=== PATIENT | female | born 1955 ===

== ENCOUNTER 2017-05-23 12:05 | Observation (INO) | payer BC ==
[2017-05-23 12:06] VITALS: BMI 45.2
[2017-05-23] MEDS ORDERED: Albuterol 0.083% Inhal Sol (2.5 mg/3 mL) UD INH ONE (13:08)
--- NOTE | 2017-05-23 13:45 | ED PDOC ---
HPI: SOB/CHF/COPD Time Seen by Provider: 05/23/17 12:20 Chief Complaint (Nursing): Cough, Cold, Congestion Chief Complaint (Provider): Shortness of breath History Per: Patient History/Exam Limitations: no limitations Onset/Duration Of Symptoms: Days (x5) Current Symptoms Are (Timing): Still Present Current Respiratory Medications: See Home Med List, Prednisone Associated Symptoms: denies: Fever, Chills, Other (vomiting, diarrhea, dry cough ) Recently: Treated By A Physician Additional Complaint(s): Pooja Berry is a 62 year old female, with a past medical history of asthma, bronchitis, and PNA, who presents to the emergency department complaining of shortness of breath onset for x5 days. Patient states she went to [facility] in [place] for cough, she was given levaquin and prednisone as treatment for pneumonia, she was told if symptoms worsen to come to the ER. She felt slightly better but still has shortness of breath. She was checked for the Flu on Tuesday which came back negative. She denies dry cough, vomiting, diarrhea, fever or chills. No further medical complaints. PMD: None provided. Past Medical History Reviewed: Historical Data, Nursing Documentation, Vital Signs Vital Signs: Last Vital Signs Temp 97.8 F 05/24/17 08:08 Pulse 81 05/24/17 09:00 Resp 20 05/24/17 08:08 BP 120/70 05/24/17 08:08 Pulse Ox 99 05/24/17 08:08 - Medical History PMH: Anxiety, Arthritis, Asthma, Bronchitis, Cardia Arrhythmia, Depression, Fractures (Fx ribs after falling off stairs), Hiatal Hernia, Pneumonia Denies: Chronic Kidney Disease - Surgical History Surgical History: Cholecystectomy Denies: Pacemaker - Family History Family History: States: Unknown Family Hx - Social History Current smoker - smoking cessation education provided: No Alcohol: None Drugs: Denies - Immunization History Hx Tetanus Toxoid Vaccination: Yes Hx Influenza Vaccination: No Hx Pneumococcal Vaccination: Yes - Home Medications Home Medications: Ambulatory Orders Medication Instructions Recorded Albuterol HFA [Ventolin HFA 90 1 inh INH PRN PRN 05/23/17 mcg/actuation (8 g)] Levofloxacin [Levaquin] 500 mg PO DAILY 05/23/17 Prednisone [Deltasone] 60 mg PO DAILY 05/23/17 Albuterol 0.083% [Albuterol 0.083% 2.5 mg INH RQ6 PRN #90 neb 05/24/17 Inhal Maria C (2.5 mg/3 ml) UD] Brompheniramine/Pseudoephed/Dm 10 ml PO Q6 #1 bottle 05/24/17 [Bromfed Dm Cough Syrup] - Allergies Allergies/Adverse Reactions: Allergies Allergy/AdvReac Type Severity Reaction Status Date / Time hydrocodone Allergy Severe ANAPHYLAXIS Verified 05/11/17 06:02 Iodine and Iodide Containing Allergy Severe ANAPHYLAXIS Verified 05/11/17 06:02 Produc oxycodone Allergy Severe ANAPHYLAXIS Verified 05/11/17 06:02 Penicillins Allergy Severe ANAPHYLAXIS Verified 05/11/17 06:02 shellfish derived Allergy Severe ANAPHYLAXIS Verified 05/11/17 06:02 iodine Allergy ANAPHYLAXIS Verified 05/11/17 06:02 SEAFOOD Allergy Severe ANAPHYLAXIS Uncoded 05/11/17 06:02 seafood Allergy Severe ANAPHYLAXIS Uncoded 05/11/17 06:02 Review of Systems ROS Statement: Except As Marked, All Systems Reviewed And Found Negative Constitutional: Negative for: Fever, Chills Respiratory: Positive for: Shortness of Breath. Negative for: Cough (dry) Gastrointestinal: Negative for: Vomiting, Diarrhea Physical Exam - Reviewed Nursing Documentation Reviewed: Yes Vital Signs Reviewed: Yes - Physical Exam Appears: Positive for: Well (obese), Non-toxic, No Acute Distress Head Exam: Positive for: ATRAUMATIC, NORMAL INSPECTION, NORMOCEPHALIC Skin: Positive for: Normal Color, Warm, Dry Eye Exam: Positive for: Normal appearance ENT: Positive for: Normal ENT Inspection Neck: Positive for: Normal, Painless ROM, Supple Cardiovascular/Chest: Positive for: Regular Rate, Rhythm. Negative for: Murmur Respiratory: Negative for: Normal Breath Sounds (diminished breath sounds bilaterally ) Gastrointestinal/Abdominal: Positive for: Normal Exam, Soft. Negative for: Tenderness Back: Positive for: Normal Inspection. Negative for: L CVA Tenderness, R CVA Tenderness Extremity: Positive for: Normal ROM. Negative for: Deformity Neurologic/Psych: Positive for: Alert, Oriented - Laboratory Results Result Diagrams: 05/23/17 17:59 05/23/17 17:59 - ECG O2 Sat by Pulse Oximetry: 96 (RA) Pulse Ox Interpretation: Normal Medical Decision Making Medical Decision Making: Initial Impression: short of breath rule out PNA, asthma exacerbation Initial Plan: --Chest two views (PA/LAT) [RAD] --Albuterol 0.083% Inhal Maria C 2.5 mg INH --Peak flow pre/post Tx --Influenza A B --reevaluation 13:40 Chest X-Ray FINDINGS: LUNGS: No active pulmonary disease. PLEURA: No significant pleural effusion identified. No pneumothorax apparent. CARDIOVASCULAR: No radiographic findings to suggest acute or significant cardiovascular disease. OSSEOUS STRUCTURES: No significant abnormalities. VISUALIZED UPPER ABDOMEN: Normal. OTHER FINDINGS: None. IMPRESSION: No active disease. No significant interval change compared to the prior examination(s). 14:30 --Will order CT to rule out PE 16:20 --D Dimer elevated pt unable to get CT chest due to allergy to iodine. 16:30 --Patient was accepted by Dr. Jesus. will be admitted to hospital. Scribe Attestation: Documented by Kyle Ferraro, acting as a scribe for Ne Jensen MD Provider Scribe Attestation: All medical record entries made by the Scribe were at my direction and personally dictated by me. I have reviewed the chart and agree that the record accurately reflects my personal performance of the history, physical exam, medical decision making, and the department course for this patient. I have also personally directed, reviewed, and agree with the discharge instructions and disposition. Disposition - Clinical Impression Clinical Impression: Acute back pain, Chest pain - Patient ED Disposition Is Patient to be Admitted: Yes - Disposition Disposition Time: 14:15 Condition: STABLE
--- NOTE | 2017-05-23 14:16 | RAD ---
HISTORY: cough rule out pneumonia COMPARISON: 07/22/2009. TECHNIQUE: Chest PA and lateral FINDINGS: LUNGS: No active pulmonary disease. PLEURA: No significant pleural effusion identified. No pneumothorax apparent. CARDIOVASCULAR: No radiographic findings to suggest acute or significant cardiovascular disease. OSSEOUS STRUCTURES: No significant abnormalities. VISUALIZED UPPER ABDOMEN: Normal. OTHER FINDINGS: None. IMPRESSION: No active disease. No significant interval change compared to the prior examination(s).
[2017-05-23 18:15] LABS: BASO # 0.1 K/uL (0.0-0.2); BASO % 0.5 % (0.0-2.0); EOS # 0.1 K/uL (0.0-0.7); EOS % 0.7 % (0.0-4.0); HEMOGLOBIN 14.6 g/dL (12.0-16.0); LYMPH # 3.4 K/uL (1.0-4.3); LYMPH % 29.8 % (20.0-40.0); MEAN CELL VOLUME 81.6 fl (81.0-99.0); MEAN CORPUSCULAR HEMOGLOBIN 26.6 pg (27.0-31.0); MEAN CORPUSCULAR HGB CONC 32.5 g/dL (33.0-37.0); MEAN PLATELET VOLUME 8.5 fl (7.2-11.7); MONO # 0.7 K/uL (0.0-0.8); MONO % 5.8 % (0.0-10.0); NEUT # 7.2 K/uL (1.8-7.0); NEUT % 63.2 % (50.0-75.0); RBC 5.48 Mil/uL (3.80-5.20); WHITE BLOOD COUNT 11.5 K/uL (4.8-10.8)
[2017-05-23 18:26] LABS: ALB/GLOB RATIO 1.2 (1.0-2.1); ALT/SGPT 34 U/L (9-52); AST/SGOT 23 U/L (14-36); BLOOD UREA NITROGEN 15 mg/dl (7-17); CALCIUM 9.1 mg/dL (8.4-10.2); GFR AFRICAN-AMERICAN > 60; GFR NON-AFRICAN AMERICAN > 60
[2017-05-23] MEDS ORDERED: Enoxaparin 100 mg Syringe SC STA (22:16)
[2017-05-24] MEDS: Albuterol 0.083% Inhal Sol (2.5 mg/3 mL) UD INH PRN ×2 (00:13→08:32)
[2017-05-24] MEDS ORDERED: Enoxaparin 60 mg Syringe SC STA (00:21)
[2017-05-24] MEDS ORDERED: Potassium Chloride 20 mEq ER Tab PO ONE (11:21)
--- NOTE | 2017-05-24 12:59 | NM ---
COMPARISON: May 23, 2017. TECHNIQUE: 44.0 mCi technetium 99-m DTPA aerosol. 5.7 mCI technetium 99-m MAA administered intravenously. FINDINGS: VENTILATION COMPONENT: Mildly heterogeneous. Radionuclide identified in the tracheobronchial tree in the esophagus in incidental finding PERFUSION COMPONENT: Heterogeneous distribution of radionuclide. No geographic, segmental, lobar abnormalities apparent on the present examination. IMPRESSION: Low probability ventilation perfusion scan for pulmonary embolism.
[2017-05-24 15:49] VITALS: BP 122/78; PULSE 84; RESP 19; TEMP 97.3; O2SAT 99
--- NOTE | 2017-05-24 21:53 | CARD ---
APPROVED REPORT EKG Measurement Heart [id number] <Conclusion> Normal sinus rhythm Normal ECG
--- NOTE | 2017-05-25 04:05 | HP ---
HISTORY OF PRESENT ILLNESS: This is a 62-year-old female with history of bronchial asthma, who was admitted to the emergency room for respiratory symptoms, mainly upper, associated with upper back pleuritic-like pain. THE PATIENT HAS ALLERGY TO IODINE and CT angiogram was not done. The patient had elevated D-dimer and there was a concern to rule out PE. The patient was admitted to the hospital for further management. REVIEW OF SYSTEMS: Other review of system is negative. ALLERGIES: MULTIPLE ALLERGIES TO, HYDROCODONE, IODINE, OXYCODONE, PENICILLIN. SOCIAL HISTORY: No history of smoking, EtOH, or substance abuse. FAMILY HISTORY: Noncontributory. HOME MEDICATIONS: Include albuterol. The patient was on steroid as well as Levaquin. PAST MEDICAL HISTORY: Bronchial asthma. PHYSICAL EXAMINATION: GENERAL: The patient was not in any cardiopulmonary distress. VITAL SIGNS: Blood pressure 120/70, temperature 97.8, respiratory rate 20, and pulse 66. HEENT: Pupils equal, reactive to light. Normal-appearing mucosa of the conjunctivae, oropharynx, and nasal membrane mucosa. NECK: Supple. No JVD. No carotid bruit. No lymph node. No thyromegaly. CHEST/LUNGS: Bilateral symmetrical expansion. Good air exchange. No rales, no rhonchi. CARDIOVASCULAR: PMI not localized. S1, S2. No additional sounds. ABDOMEN: Normoactive bowel sounds. No tenderness. No organomegaly. No masses. EXTREMITIES: No cyanosis, no clubbing, no edema. CAUSTICISER: Alert, awake, oriented x3. No neurological deficit could be appreciated. ASSESSMENT: 1. Upper respiratory tract infection. 2. History of bronchial asthma. 3. Pleuritic-like chest pain. PLAN: We will do a V/Q scan, continue the current medications, and review the chest x-ray which showed no active disease. Shabnam Jesus MD
--- NOTE | 2017-05-25 05:54 | DS ---
REASON FOR ADMISSION: This is a 62-year-old female with history of bronchial asthma, was admitted for pleuritic chest pain. COURSE OF HOSPITALIZATION: Patient was admitted to telemetry floor and she was started on DVT prophylaxis and V/Q scan was ordered. V/Q scan results was of low probability for pulmonary embolism and patient was discharged home to continue her bronchodilators as well as cough suppressant. FINAL DIAGNOSES: Upper respiratory tract infection, musculoskeletal upper back pain, history of bronchial asthma. [facility] MD [place]
== END 2017-05-24 16:30 | disposition home or self-care (01) ==
LOC: H.ER 12:05 → H.ERHOLD 16:29 → H.TEL 21:04
PROVIDERS: ADMIT Internal Medicine; ATTEND Internal Medicine
DX: J06.9 Acute upper respiratory infection, unspecified (principal); J45.909 Unspecified asthma, uncomplicated; M54.6 Pain in thoracic spine; Z88.5 Allergy status to narcotic agent; Z88.0 Allergy status to penicillin; Z91.041 Radiographic dye allergy status; F41.9 Anxiety disorder, unspecified; F32.9 Major depressive disorder, single episode, unspecified; M19.90 Unspecified osteoarthritis, unspecified site
CPT/HCPCS: 71046; 78582; 80053; 85025; 85378; 87804; 93005; 94150; 94640; 96372; 99285; A9567; G0378; J1650